=== PATIENT | male | born 1975 | race Caucasian/White ===

== ENCOUNTER → 2021-05-18 | Outpatient (CLI) | payer SELFPAY ==
[2021-05-19 18:13] LABS: CORONAVIRUS (COVID19) CSH-NRL Negative (Negative)
== END | disposition home or self-care (01) ==
LOC: LAB 11:25 → LAB SHORT 11:25
PROVIDERS: Family Medicine
DX: Z20.822 Contact with and (suspected) exposure to COVID-19 (principal)
CPT/HCPCS: U0003

== ENCOUNTER 2021-10-29 14:12 | Observation (INO) | payer SELFPAY ==
[~2021-10-29] VITALS: Ht 182.9 cm; Wt 81.7 kg
[2021-10-29 14:56] LABS: BASOPHILS PERCENT AUTO 1 % (0-2); EOSINOPHILS PERCENT AUTO 0 % (0-6); Hematocrit 47.8 % (37.0-53.0); Hemoglobin 16.7 g/dL (13.5-17.5); IMMATURE GRAN ABSOLUTE AUTO 0.11 K/mm3 (0.00-0.10); IMMATURE GRAN PERCENT AUTO 1 % (0-1); LYMPHOCYTES ABSOLUTE AUTO 0.61 K/mm3 (0.84-5.20); LYMPHOCYTES PERCENT AUTO 4 % (21-46); MONOCYTES ABSOLUTE AUTO 1.29 K/mm3 (0.16-1.47); MONOCYTES PERCENT AUTO 8 % (4-13); Mean Corpuscular HGB Conc 34.9 g/dL (31.5-36.5); Mean Corpuscular Volume 95 fL (80-100); Mean Platelet Volume 9.1 fL (9.1-12.4); NEUTROPHILS ABSOLUTE AUTO 13.85 K/mm3 (1.96-9.15); NEUTROPHILS PERCENT AUTO 87 % (41-73); Platelet Count 421 K/mm3 (150-400); RDW Coefficient Variation 12.8 % (11.7-14.2); RDW Standard Deviation 44.9 fL (35.1-46.3); Red Blood Cell Count 5.06 M/mm3 (4.30-5.90); White Blood Cell Count 15.96 K/mm3 (4.00-11.30)
[2021-10-29] MEDS ORDERED: MELATONIN5 M1 PO (15:13)
[2021-10-29 15:19] LABS: Alanine Aminotransfer (ALT/SGP 130 U/L (12-78); Albumin, Blood 4.6 g/dL (3.4-5.0); Albumin/Globulin Ratio 1.3 (0.8-1.8); Alk Phos 118 U/L (50-136); Anion Gap 16 mmol/L (6-16); Aspartate Aminotrans (AST/SGOT 172 U/L (12-37); Bilirubin, Total 2.7 mg/dL (0.1-1.0); Blood Urea Nitrogen 16 mg/dL (8-24); Bun/Creatinine Ratio 17.7 (12.0-20.0); CO2, Blood 20 mmol/L (21-32); Calcium, Blood 10.2 mg/dL (8.5-10.1); Chloride, Blood 96 mmol/L (98-108); Globulin, Blood 3.6 g/dL (2.2-4.0); Glomerular Filtration Rate >60 (60-); Glucose, Blood 132 mg/dL (70-99); Potassium, Blood 4.3 mmol/L (3.5-5.5); Sodium, Blood 132 mmol/L (136-145); Total Protein, Blood 8.2 g/dL (6.4-8.2)
[2021-10-29 15:56] LABS: Influenza A, PCR NEGATIVE (NEGATIVE); Influenza B, PCR NEGATIVE (NEGATIVE); Resp Syncytial Virus, PCR NEGATIVE (NEGATIVE); SARS-Cov-2 (COVID-19) PCR, MMC NEGATIVE (NEGATIVE)
--- NOTE | 2021-10-30 04:18 | NUR ---
SHIFT SUMMARY 46 YR M ADMITTED ON 10-29-21 FOR ACUTE PHARYNGITIS. FULL CODE. PT IS FULLY INDEPENDANT AND OTHER THAN ADMITTING DX, APPEARS TO BE HEALTHY. HE C/O PAIN IN HIS THROAT AT A 10/10. FENTANYL PER EMAR BROUGHT HIS PAIN LEVEL DOWN TO A 5/6. PT HAS NO SINIFICANT PMH. PT IS COOPERATIVE AND USES CALL LIGHT APPROPRIATELY.
[2021-10-30 04:54] LABS: BASOPHILS ABSOLUTE AUTO 0.01 K/mm3 (0.00-0.23); BASOPHILS PERCENT AUTO 0 % (0-2); EOSINOPHILS PERCENT AUTO 0 % (0-6); Hematocrit 43.9 % (37.0-53.0); Hemoglobin 14.6 g/dL (13.5-17.5); IMMATURE GRAN ABSOLUTE AUTO 0.04 K/mm3 (0.00-0.10); IMMATURE GRAN PERCENT AUTO 1 % (0-1); LYMPHOCYTES PERCENT AUTO 4 % (21-46); MONOCYTES ABSOLUTE AUTO 0.25 K/mm3 (0.16-1.47); MONOCYTES PERCENT AUTO 3 % (4-13); Mean Corpuscular HGB Conc 33.3 g/dL (31.5-36.5); Mean Corpuscular Volume 99 fL (80-100); Mean Platelet Volume 8.9 fL (9.1-12.4); NEUTROPHILS ABSOLUTE AUTO 6.78 K/mm3 (1.96-9.15); NEUTROPHILS PERCENT AUTO 92 % (41-73); Platelet Count 301 K/mm3 (150-400); RDW Coefficient Variation 12.7 % (11.7-14.2); Red Blood Cell Count 4.43 M/mm3 (4.30-5.90); White Blood Cell Count 7.38 K/mm3 (4.00-11.30)
[2021-10-30 05:34] LABS: Alanine Aminotransfer (ALT/SGP 83 U/L (12-78); Albumin, Blood 3.6 g/dL (3.4-5.0); Albumin/Globulin Ratio 1.1 (0.8-1.8); Alk Phos 90 U/L (50-136); Anion Gap 11 mmol/L (6-16); Aspartate Aminotrans (AST/SGOT 81 U/L (12-37); Bilirubin, Total 1.3 mg/dL (0.1-1.0); Blood Urea Nitrogen 16 mg/dL (8-24); CO2, Blood 25 mmol/L (21-32); Calcium, Blood 9.1 mg/dL (8.5-10.1); Chloride, Blood 100 mmol/L (98-108); Globulin, Blood 3.3 g/dL (2.2-4.0); Glomerular Filtration Rate >60 (60-); Glucose, Blood 140 mg/dL (70-99); Sodium, Blood 136 mmol/L (136-145); Total Protein, Blood 6.9 g/dL (6.4-8.2)
--- NOTE | 2021-10-30 18:24 | NUR ---
SHIFT SUMMARY PT HAS BEEN COMPLAINING OF NAUSEA, VOMITING, AND INDEGESTION MOST OF THE SHIFT. HE WAS ABLE TO TOLERATE FULL LIQUID LUNCH WITHOUT THROWING UP BUT FELT NASUEOUS AFTERWARD. DR IS HOPEFUL THAT WITH INFLAMMATION MANAGEMENT THE PT WILL BE ABLE TO RETURN. WILL CONTINUE TO MONITOR.
[2021-10-31 05:07] LABS: BASOPHILS ABSOLUTE AUTO 0.01 K/mm3 (0.00-0.23); BASOPHILS PERCENT AUTO 0 % (0-2); EOSINOPHILS PERCENT AUTO 0 % (0-6); Hematocrit 41.5 % (37.0-53.0); Hemoglobin 13.9 g/dL (13.5-17.5); IMMATURE GRAN ABSOLUTE AUTO 0.07 K/mm3 (0.00-0.10); IMMATURE GRAN PERCENT AUTO 1 % (0-1); LYMPHOCYTES PERCENT AUTO 4 % (21-46); MONOCYTES ABSOLUTE AUTO 0.46 K/mm3 (0.16-1.47); MONOCYTES PERCENT AUTO 5 % (4-13); Mean Corpuscular HGB 32.5 pg (26.0-34.0); Mean Corpuscular HGB Conc 33.5 g/dL (31.5-36.5); Mean Corpuscular Volume 97 fL (80-100); Mean Platelet Volume 9.3 fL (9.1-12.4); NEUTROPHILS ABSOLUTE AUTO 8.71 K/mm3 (1.96-9.15); NEUTROPHILS PERCENT AUTO 90 % (41-73); Platelet Count 285 K/mm3 (150-400); RDW Coefficient Variation 12.6 % (11.7-14.2); RDW Standard Deviation 45.1 fL (35.1-46.3); Red Blood Cell Count 4.28 M/mm3 (4.30-5.90); White Blood Cell Count 9.65 K/mm3 (4.00-11.30)
--- NOTE | 2021-10-31 05:54 | NUR ---
PT C/O PAIN AND MEDICATED PER EMAR. PT IS ALERT AND ORIENTED X4, ON RA SATTING >95 NO C/O SOB, PT WAS ABLE TO URINATE MORE AND HAD A BM TONIGHT, PT SKIN STILL INTACT MOVES WELL IN BED AND TO THE BATHROOM. PT TOLERATING FULL LIQUID DIET WELL. NO ACUTE EVENTS OVERNIGHT, PT BELONGINGS AND CALL LIGHT WITHIN REACH.
--- NOTE | 2021-10-31 07:52 | NUR ---
RN recvd handoff of patient care from VELMA Taylor Patient was in bed alert and awake. He stated that he just recvd his meds for pain and nausea and that "You (RN) will need to stay on top of it because I get it every four hours". Patient had no other requests.
--- NOTE | 2021-10-31 12:27 | NUR ---
Patient was alert and orient. His affect was restricted and mood was congruent. Patient was continent of bowel and bladder. He was compliant with medications, and complained of pain and nausea. He did recv Fentanyl for pain and Zofran for nausea, He had minimal relief. Patient will be discharged today
[2021-10-31] MEDS ORDERED: Acetaminophen325 M1 PO (13:42)
[2021-10-31] MEDS ORDERED: VISBIOME 112.51 EACH PO (13:43)
[2021-10-31] MEDS ORDERED: Calcium Carbon500 MG PO (13:43)
[2021-10-31] MEDS ORDERED: Norco 5-325 Ta1 EACH PO (13:44)
[2021-10-31] MEDS ORDERED: AMOCLA600S PO (13:44)
[2021-10-31] MEDS ORDERED: ONDA4ODT MM (13:45)
[2021-10-31] MEDS ORDERED: PANT40 PO (13:45)
[2021-10-31] MEDS ORDERED: PRED20 PO (13:45)
--- NOTE | 2021-10-31 14:43 | NUR ---
Patient was discharged at 1435 to home today. RN reviewed his list and discharge instructions. His IV was removed and belongings were gathered and he was assisted by staff to the South entrance where his picked him up.
== END 2021-10-31 14:45 | disposition home or self-care (01) ==
LOC: ER 14:12 → MEDS 14:13 → ENPENDDIS 10-31 12:36 → MEDS 10-31 14:45
PROVIDERS: Internal Medicine; Physician Assistant; ADMIT Internal Medicine
DX: J02.9 Acute pharyngitis, unspecified (principal); K29.00 Acute gastritis without bleeding; K76.0 Fatty (change of) liver, not elsewhere classified; F17.210 Nicotine dependence, cigarettes, uncomplicated; Z20.822 Contact with and (suspected) exposure to COVID-19
CPT/HCPCS: 0241U; 36415; 70491; 74177; 80053; 83690; 85025; 90686; 96365-59; 96366; 96372-59; 96375-59; 99285-25; A9270; C9113; G0008; J0295; J1100; J1170; J1650; J1885; J2405; J2930; J3010; J7030; J7050; Q9967

== ENCOUNTER 2022-05-31 16:25 | Emergency (ER) | payer OTHER ==
[~2022-05-31] VITALS: Ht 182.9 cm; Wt 86.2 kg
[~2022-05-31 16:25] MED LIST: AMOCLA600S PO; Acetaminophen325 M1 PO; Calcium Carbon500 MG PO; MELATONIN5 M1 PO; Norco 5-325 Ta1 EACH PO; ONDA4ODT MM; PANT40 PO; PRED20 PO; VISBIOME 112.51 EACH PO
[2022-05-31] MEDS ORDERED: LEVFLO500 PO (17:32)
[2022-05-31] MEDS ORDERED: IBUP600 PO (17:32)
[2022-05-31] MEDS ORDERED: TRAM50 PO (17:39)
== END 2022-05-31 17:50 | disposition home or self-care (01) ==
LOC: ER 16:25
DX: S91.331A Puncture wound without foreign body, right foot, initial encounter (principal); F17.210 Nicotine dependence, cigarettes, uncomplicated; Z79.52 Long term (current) use of systemic steroids; Z79.899 Other long term (current) drug therapy; W22.8XXA Striking against or struck by other objects, initial encounter
CPT/HCPCS: 90471; 90714; 99283; A9270

== ENCOUNTER 2023-04-27 09:28 | Emergency (ER) | payer OTHER ==
[~2023-04-27] VITALS: Ht 182.9 cm; Wt 77.1 kg
[~2023-04-27 09:28] MED LIST changes: +IBUP600 PO; +LEVFLO500 PO; +TRAM50 PO
[2023-04-27 10:03] VITALS: BP 130/90
[2023-04-27] MEDS ORDERED: Amphetamine Sal15 MG PO (10:55)
[2023-04-27] MEDS ORDERED: Hydroxyzine HCl25 MG PO (10:55)
[2023-04-27] MEDS ORDERED: Naltrexone HCl50 MG PO (10:56)
[2023-04-27] MEDS ORDERED: NEURONTIN40010 PO (10:57)
[2023-04-27] MEDS ORDERED: NEURONTIN300 MG PO (10:57)
[2023-04-27] MEDS ORDERED: Vistaril50 MG PO (11:21)
[2023-04-27] MEDS ORDERED: Mupirocin22 GM TOP (11:24)
[2023-04-27] MEDS ORDERED: Hydroxyzine HCl50 MG PO (13:11)
== END 2023-04-27 11:31 | disposition home or self-care (01) ==
LOC: ER 09:28
DX: T63.441A Toxic effect of venom of bees, accidental (unintentional), initial encounter (principal); S81.812A Laceration without foreign body, left lower leg, initial encounter; X58.XXXA Exposure to other specified factors, initial encounter; Z79.899 Other long term (current) drug therapy; F17.210 Nicotine dependence, cigarettes, uncomplicated
CPT/HCPCS: 73590; 99283-25; A9270; J1100